=== PATIENT | male | born 1950 | race Caucasian/White ===

== ENCOUNTER 2018-07-25 11:03 | Emergency (ER) | payer SELFPAY ==
--- NOTE | 2018-07-25 12:01 | NUR ---
PT. CAME IN ON AMBULANCE FOR UNRESPONSIVE MALE IN HIS CAR.... PT. ARRIVED STOOD UP FROM AMBULANCE GURNEY AND SAT ON OUR ER GURNEY.... PT. THEN STOOD UP AND STATED HE WAS LEAVEING. PARAMETIC, NURSE JOSE, SENIOR IT AUDITORJEEVAN BUSCH, AND ME THE CHARGE NURSE TRIED TO DELAY HIM LONG ENOUGH TO HAVE AN MD SEE THE PT. PT. WAS NOT ON A HOLD AND WOULD NOT STOP WALKING. WHEN PT. LET HIMSELF OUT OF THE ER DOOR. I HAD THE JEEVAN BUSCH FOLLOW HIM OUT WHEN HE STARTED WALKING FAST HE COULD ACROSS THE PARKING LOT. PARAMETIC CALLED [employer] TO NOTIFY THEM OF HIM WALKING AWAY AND BEING CONFUSSED.
--- NOTE | 2018-07-27 08:49 | NUR ---
MAILED MANSOOR HAILE HIS [place] [employer]IV[place] LICENCE BACK TO [address] [place] [address]
== END 2018-07-25 11:45 | disposition left against medical advice (07) ==
LOC: ER 11:04
DX: R41.0 Disorientation, unspecified (principal); Z53.21 Procedure and treatment not carried out due to patient leaving prior to being seen by health care provider

== ENCOUNTER 2022-02-24 18:27 | Emergency (ER) | payer SELFPAY ==
[~2022-02-24] VITALS: Ht 162.6 cm; Wt 75.0 kg
[2022-02-24 18:35] VITALS: BP 142/58
[2022-02-24 22:28] LABS: BASOPHILS % (AUTO) 0.2 % (0-1); EOSINOPHILS % (AUTO) 0.1 % (0-6); HEMATOCRIT 38.3 % (42.0-52.0); HEMOGLOBIN 12.6 g/dl (14.0-17.9); LYMPHOCYTES # (AUTO) 0.5 X10'3 (1.1-4.8); LYMPHOCYTES % (AUTO) 6.3 % (21-51); MEAN CORPUSCULAR HEMOGLOBIN 27.5 PG (27.0-31.0); MEAN CORPUSCULAR HGB CONC 32.9 g/dL (33.0-36.5); MEAN CORPUSCULAR VOLUME 83.7 FL (78-98); MEAN PLATELET VOLUME 7.6 FL (7.4-10.4); MONOCYTES # (AUTO) 0.6 X10'3 (0-0.9); MONOCYTES % (AUTO) 7.6 % (2-12); NEUTROPHILS # (AUTO) 7.3 X10'3 (1.8-7.7); NEUTROPHILS % (AUTO) 85.8 % (42-75); PLATELET COUNT 218 X10'3 (140-440); RED BLOOD COUNT 4.57 X10'6 (4.70-6.10); RED CELL DISTRIBUTION WIDTH 18.6 % (11.5-14.5); WHITE BLOOD COUNT 8.5 X10'3 (4.5-11.0)
[2022-02-24 22:42] LABS: ANISOCYTOSIS 2+; BURR CELLS 1+; ELLIPTOCYTES FEW; PLATELET ESTIMATE NORMAL
[2022-02-24 22:47] LABS: ALANINE AMINOTRANSFERASE 16 U/L (12-78); ALBUMIN 2.8 G/DL (3.4-5.0); ALBUMIN/GLOBULIN RATIO 0.7 (1.1-1.5); ALKALINE PHOSPHATASE 130 IU/L (46-116); ANION GAP 10 (8-16); ASPARTATE AMINO TRANSFERASE 18 U/L (10-37); BILIRUBIN,TOTAL 0.3 MG/DL (0.1-1.0); BLOOD UREA NITROGEN 35 MG/DL (7-18); BUN/CREATININE RATIO 31.8 (5.4-32.0); CALCIUM 8.1 MG/DL (8.5-10.1); CHLORIDE 104 MMOL/L (99-107); ETHANOL < 0.010 GM/DL (0.0-0.010); GLUCOSE 151 MG/DL (70-104); POTASSIUM 4.1 MMOL/L (3.5-5.1); SODIUM 132 MMOL/L (135-145); TOTAL CARBON DIOXIDE 18.2 MMOL/L (24-32); eGFR 66 ML/MIN
--- NOTE | 2022-02-24 23:36 | NUR ---
pt refused to provide urine
== END 2022-02-24 23:37 | disposition home or self-care (01) ==
LOC: ER 18:27
DX: R19.7 Diarrhea, unspecified (principal); K92.1 Melena; Z88.1 Allergy status to other antibiotic agents
CPT/HCPCS: 36415; 80053; 80320; 85008; 85025; 99283

== ENCOUNTER 2024-10-16 15:57 | Outpatient (CLI) | payer MEDICAID ==
[~2024-10-16 15:57] MED LIST: NO HOME MEDS
--- NOTE | 2024-10-16 21:59 | RADIOLOGY REPORT ---
DI CHEST,TWO VIEWS CLINICAL HISTORY: LOCALIZED EDEMA COMPARISON: DI CHEST,SINGLE VIEW on DOS: 08/18/24 TECHNIQUE: Frontal and lateral view of the chest was obtained FINDINGS: Lines and Tubes: None Lungs: No focal consolidation. Mild pulmonary vascular congestion. Bibasilar subsegmental atelectasi s. Pleura: No effusion. No pneumothorax. Cardiomediastinal contours:Stable mild cardiomegaly. Bones: No acute osseous abnormality. IMPRESSION: 1. Mild pulmonary vascular congestion. Bibasilar subsegmental atelectasis. Stable mild cardiomegaly. No focal consolidations.
--- NOTE | 2024-10-18 06:00 | CARDIOLOGY REPORT ---
APPROVED REPORT EXAM: Limited 2D, Doppler, and color-flow Echocardiogram. Patient Location: OUT-PATIENT Blood Pressure: 134 / 60 mmHg Heart Rate: 103 bpm Rhythm: SINUS TACHYCARDIA Indications LOCALIZED EDEMA KNOWN SEVERE AORTIC STENOSIS 08-19-[address] Justice: NONE Previous echo: [facility] 08-19-24 [facility] EF 50-55%, mLVH, REBEKAH: 0.92, PKV: 414 cm/s, GRAD: 69/41, LVOT: 1.92 2D Dimensions LVOT Diameter 1.97 (1.8-2.4cm) Aortic Valve AoV Peak Asael. 518.0 cm/s AoV VTI 80.4 cm AO Peak GR. 93.5 mmHg AO Mean GR. 61 mmHg LVOT VTI 34.19 cm LVOT Peak Asael. 164.3 cm/s REBEKAH (VMAX) 0.96 cm2 REBEKAH (VTI) 0.96 cm2 LEFT VENTRICLE Small LV size with hyperdynamic LV function with near cavity obliteration due to low volume state (de creased stroke volume). Mid LV gradient of 42mmHG detected at rest. Patient unable to perform maneu vers due to poor cooperation. LVEF is 75%. RIGHT VENTRICLE RV is normal size and function. ATRIA The left atrium size is normal. AORTIC VALVE Probable trileaflet AV appears heavily calcified with significant stenosis demonstrated by reduced ex cursion and increased transvalvular and ascending aorta turbulance. REBEKAH: 0.96 cmsq; Pkv: 518 cm/s; Gr adients: 93/61 mmHG. MITRAL VALVE Moderate MV annular calcification with thickened leaflets without obVious stenosis. Trace regurgitati on. Other Information Study Quality: Technically Difficult PARASTERNAL WINDOW DUE TO RESPIRATORY STATUS AND POOR COOPERATIO N. Conclusion Small LV size with hyperdynamic LV function with near cavity obliteration due to low volume state (de creased stroke volume). Mid LV gradient of 42mmHG detected at rest. Patient unable to perform man euvers due to poor cooperation. LVEF is 75%. RV is normal size and function. The left atrium size is normal. Probable trileaflet AV appears heavily calcified with significant stenosis demonstrated by reduced ex cursion and increased transvalvular and ascending aorta turbulance. REBEKAH: 0.96 cmsq; Pkv: 518 cm/s; G radients: 93/61 mmHG. Moderate MV annular calcification with thickened leaflets without obVious stenosis. Trace regurgitati on.
== END 2024-10-16 23:59 | disposition home or self-care (01) ==
LOC: CARD DIAG 15:57
PROVIDERS: ATTEND Nurse Practitioner Family
DX: I34.81 Nonrheumatic mitral (valve) annulus calcification (principal); J98.11 Atelectasis; R09.89 Other specified symptoms and signs involving the circulatory and respiratory systems; I51.7 Cardiomegaly; R60.0 Localized edema
CPT/HCPCS: 71046; 93308

== ENCOUNTER 2025-01-31 20:05 | Inpatient (IN) | payer MEDICAID ==
[~2025-01-31] VITALS: Ht 162.6 cm; Wt 77.3 kg
[2025-01-31 20:33] VITALS: TEMP 98.5
--- NOTE | 2025-01-31 20:46 | Physician Documentation ---
History of Present Illness ~ Chief Complaint: Wound Stated Complaint: LEG PAIN/SWELLING Time Seen by MD: 20:43 Primary Medical Doctor: NONE HPI Patient presents to the emergency room for evaluation of lower extremity redness swelling and draining. History of CHF. No fevers. Patient has a poor historian and very agitated. Tetanus within 5 years?: Yes Medication Reconciliation Allergies: Coded Allergies: levofloxacin (Unverified Adverse Reaction, Mild, RED RASH ON CHEST AND ABDOMEN RESOLVED AFTER IV BENADRYL, 01/31/25) Scheduled Furosemide (Furosemide), 1 TAB PO DAILY, (Reported) Metformin HCl (Metformin HCl), 1 TAB PO BID, (Reported) Pantoprazole Sodium (Pantoprazole Sodium), 1 TAB PO BID, (Reported) Tamsulosin Hcl* (Flomax*), 0.4 MG PO BID, (Reported) Discontinued Medications Home Med List (No Home Medications), 1 .SEE ORDER DAILY, (Reported) Discontinued Reason: patient no longer taking Past Medical History Patient History: Patient reports no known family medical history. Review of Systems ROS All review of systems negative except as per HPI Physical Exam Vital Signs: Temperature: 98.5, Source: Oral, Heart Rate: 77, Respiratory Rate: 16, BP: 131/68, Pulse Oximetry: 97, Weight: 77.270 General Appearance General: Patient is awake, alert, oriented x4, agitated Head: Normocephalic and atraumatic. Eyes: Conjunctival normal. EOMI. PERRL. ENT: Mucous membranes moist. Neck: Supple, trachea is midline. Chest: Clear to auscultation bilaterally without rales, rhonchi, or wheezes. There is no accessory muscle use or retractions. Cardiac: RRR without murmurs, gallops, or rubs. Extremities: Bilateral cellulitis with significant edema and draining Progress Results/Orders Results/Orders Orders - JERICHO BRANDT MD Page Hospitalist (01/31/25 22:26) Fill Out Med Reconciliation (01/31/25 22:26) Completed Orders - JERICHO BRANDT MD Drug Screen, Urine (01/31/25 20:59) Acetaminophen 1,000mg/100ml Iv (Ofirmev (01/31/25 22:20) Furosemide Inj (Lasix Inj) (01/31/25 22:30) Vital Signs 01/31/25 01/31/25 01/31/25 20:33 21:00 21:24 Temp 98.5 Pulse 77 97 Resp 16 16 17 B/P (MAP) 131/68 133/68 (89) Pulse Ox 97 95 O2 Flow Rate 0 Laboratory Tests Test 01/31/25 21:26 01/31/25 21:28 01/31/25 21:39 Glucometer 207 H White Blood Count 10.0 Red Blood Count 3.61 L Hemoglobin 9.8 L Hematocrit 29.5 L Mean Corpuscular Volume 81.7 Mean Corpuscular Hemoglobin 27.2 Mean Corpuscular Hemoglobin Concent 33.3 Red Cell Distribution Width 15.3 H Platelet Count 365 Mean Platelet Volume 7.7 Neutrophils (%) (Auto) 66.7 Lymphocytes (%) (Auto) 16.8 L Monocytes (%) (Auto) 10.8 Eosinophils (%) (Auto) 4.8 Basophils (%) (Auto) 0.9 Neutrophils # (Auto) 6.6 Lymphocytes # (Auto) 1.7 Monocytes # (Auto) 1.1 H Eosinophils # (Auto) 0.5 Basophils # (Auto) 0.1 CBC Comment Sodium Level 142 Potassium Level 4.7 Chloride Level 108 H Carbon Dioxide Level 26.6 Anion Gap 7 L Blood Urea Nitrogen 25 H Creatinine 0.95 Estimated GFR/1.73 m2 78 BUN/Creatinine Ratio 26.3 H Glucose Level 212 H Hemoglobin A1c 7.3 H Calcium Level 8.2 L Troponin I High Sensitivity 12 Pro-B-Type Natriuretic Peptide 237 H Albumin 2.8 L Procalcitonin < 0.05 Chemistry Comments Urine Opiates Screen Negative Urine Methadone Screen Negative Urine Fentanyl Screen Negative Urine Barbiturates Screen Negative Urine Phencyclidine Screen Negative Urine Amphetamines Screen Negative Urine Benzodiazepines Screen Negative Urine Cocaine Screen Negative Urine Cannabinoids Screen Negative Drug Screen Comment Microbiology Date/Time Source Procedure Growth Status 01/31/25 21:28 Blood Iv Start Blood Culture - Preliminary NEGATIVE (LESS THAN 24 HOURS) Resulted Medical Decision Making Additional information obtaine: old records Findings Patient presented to the emergency room with bilateral lower extremity redness a nd swelling that has per HPI. Differentials include but are not limited to cellulitis, DVT, osteomyelitis, CHF exacerbation therefore emergent labs ordered. Symptoms consistent with cellulitis that has well as fluid overload. Treatment initiated. Differential Dx:Considerations: Include: Abscess, Cellulitis, Dressing change, Healing wound, Other Departure Admitted to Inpatient Unit: yes, to hospitalist Impression: Primary Impression: Cellulitis Condition: Guarded Referrals: NO PRIMARY CARE PROVIDER (PCP) Signature Scribe Signature: No scribe Attestation: The note accurately reflects work and decisions made by me.Jericho Brandt MD 02/01/25 18:25 JERICHO BRANDT MD Jan 31, 2025 20:46
--- NOTE | 2025-01-31 21:14 | ELECTROCARDIOGRAPH REPORT ---
[facility] Test Date: 2025-01-31 Test Time: 21:11:44 Pat Name: MANSOOR HAILE Department: [facility]-ER Patient ID: [facility]-[id number] Room: ED 9 Gender: M Door Opener: : 1950 Requested By: JAVON ELLINGTON Order Number: [id number] Reading MD: Dr. COLUMBA Carrasquillo Measurements Intervals [place] Rate: 96 P: 81 NM: 183 QRS: 45 QRSD: 77 T: 137 QT: 309 QTc: 391 Interpretive Statements Sinus rhythm Nonspecific T abnormalities, lateral leads Electronically Signed On 02-01-2025 16:52:[address] COLUMBA Carrasquillo Please click the below link to view image of tracing.
[2025-01-31 21:24] VITALS: BP 133/68; PULSE 97; RESP 17; O2SAT 95
--- NOTE | 2025-01-31 21:27 | RADIOLOGY REPORT ---
EXAM: DI CHEST,SINGLE VIEW HISTORY: CP TECHNIQUE: 1 view of the chest COMPARISON: DI CHEST,TWO VIEWS on DOS: 10/16/24 FINDINGS/IMPRESSION: LUNGS: No pleural effusion, consolidation, or pneumothorax. Central pulmonary vascular congestion. MEDIASTINUM: Unremarkable. BONES: No acute osseous abnormality. Degenerative change of bilateral glenohumeral joints. OTHER: None.
[2025-01-31 21:54] LABS: MEAN PLATELET VOLUME 7.7 FL (7.4-10.4); RED CELL DISTRIBUTION WIDTH 15.3 % (11.5-14.5)
[2025-01-31 22:07] LABS: URINE AMPHETAMINE SCREEN NEGATIVE (Neg); URINE BARBITUATE SCREEN NEGATIVE (Neg); URINE BENZODIAZEPINES SCREEN NEGATIVE (Neg); URINE CANNABINOID SCREEN NEGATIVE (Neg); URINE COCAINE SCREEN NEGATIVE (Neg); URINE METHADONE SCREEN NEGATIVE (Neg); URINE OPIATE SCREEN NEGATIVE (Neg); URINE PHENCYCLIDINE SCREEN NEGATIVE (Neg)
[2025-01-31 22:11] LABS: CREATININE 0.95 MG/DL (0.60-1.10); PRO BRAIN NATRIURETIC PEPTIDE 237 PG/ML (0-125); TOTAL CARBON DIOXIDE 26.6 MMOL/L (24-32); eCRCL 58 ML/MIN; eGFR 78 ML/MIN
[2025-01-31] MEDS: furosemide 10 MG/1 ML 10ml inj IV ONE (22:47)
[2025-01-31] MEDS: acetaminophen 1,000mg/100ml IV 100 ML IV ONE (22:48)
[2025-01-31] MEDS ORDERED: METF-1203 PO (23:03)
[2025-01-31] MEDS ORDERED: FURO20TA4 PO (23:03)
[2025-01-31] MEDS ORDERED: TAMS-55 PO (23:03)
[2025-01-31] MEDS ORDERED: PANT40TA54 PO (23:03)
[2025-01-31] MEDS ORDERED: HYDROcodone/acetaminophen 5mg/325mg tablet PO PRN (23:05)
[2025-01-31] MEDS ORDERED: magnesium Cl slow-release 64mg tablet PO PRN (23:05)
[2025-01-31] MEDS ORDERED: magnesium sulf-water 4G/100mL 100 ML IV PRN (23:05)
[2025-01-31] MEDS ORDERED: ondansetron/PF 4mg/2ml inj IV PRN (23:05)
[2025-01-31] MEDS ORDERED: mag hydrox/Alum hydrox/simeth 30ml oral suspension PO PRN (23:05)
[2025-01-31] MEDS ORDERED: HYDROcodone/acetaminophen 10/325mg tab PO PRN (23:05)
[2025-01-31] MEDS ORDERED: potassium Cl 20 mEq SR tablet PO PRN ×2 (23:05)
[2025-01-31] MEDS ORDERED: magnesium sulf-water 2g/50mL 50 ML IV PRN (23:05)
[2025-01-31] MEDS ORDERED: potassium Cl 40MEQ/1/2NS 520ml 520 ML IV PRN (23:05)
[2025-01-31] MEDS ORDERED: DEXTROSE 15 GM of carb/4 tabs (each vial/BOTTLE has 4 tablets) PO PRN ×2 (23:30)
[2025-01-31] MEDS ORDERED: dextrose 50%-water 50ml dispensing syringe IV PRN ×2 (23:30)
[2025-01-31] MEDS ORDERED: glucagon, human recombinant 1mg kit SUBCUT PRN (23:30)
[2025-01-31 23:32] LABS: LEUKOCYTE ESTERASE ,URINE NEGATIVE (Neg); NITRITES, URINE NEGATIVE (Neg); OCCULT BLOOD,URINE NEGATIVE (Neg)
[2025-01-31 23:37] LABS: UA COLLECTION TYPE VOIDED
--- NOTE | 2025-01-31 23:44 | HISTORY AND PHYSICAL-Residence ---
History & Physical Providers to CC Resident Creating Document: VAIBHAV KRISHNAMURTHY RES ~ History of Present Illness Primary Medical Doctor: NONE Reason for Admit\Complaint: Bilateral lower extremity cellulitis right > left History of Present Illness Patient is a poor historian and is visibly agitated and restless not fully participating in exam. Behavior is inappropriate he yells and is not cooperative. Patient is 74-year-old male with history of type 2 diabetes on metformin, severe aortic stenosis, diastolic heart failure presented to the ED with chief complaints of worsening bilateral lower extremity pain. He states that he has been having the pain for the last six weeks. He also has wounds on both lower extremity. He has not been seeing wound care or a provider. He is very restless and does not give me a good explanation about how the wounds have started, if they are getting worse or if he had used any antibiotics recently. He denies fevers, chills, nausea, vomiting, diarrhea. He does state that he has issues with constipation. He uses a cane for ambulation. His niece lives with him. He smokes cigarettes. Denies using recreational drugs. Denies allergic history. Allergies: Coded Allergies: levofloxacin (Unverified Adverse Reaction, Mild, RED RASH ON CHEST AND ABDOMEN RESOLVED AFTER IV BENADRYL, 01/31/25) Home Medications Home Medications Active Reported Flomax* (Tamsulosin HCl) 0.4 Mg Cap.sr.24h 0.4 Mg PO BID Furosemide 20 Mg Tablet 1 Tab PO DAILY Pantoprazole Sodium 40 Mg Tablet.dr 1 Tab PO BID Metformin HCl 500 Mg Tablet 1 Tab PO BID Past Medical History Past Medical History Diabetes Aortic stenosis Chronic neuropathic pain Chronic bilateral lower extremity wounds Past Surgical History Surgical History Comment Hip surgery Family History Family History: Patient reports no known family medical history. ROS ROS Reviewed in full. All negative except for pertinent positive HPI. Exam Vitals: Vital Signs Date Time Temp Pulse Resp B/P (MAP) Pulse Ox O2 Delivery O2 Flow Rate FiO2 01/31/25 21:24 97 17 133/68 (89) 95 0 01/31/25 20:33 98.5 General: General: Awake and Alert, restless, agitated, no distress HEENT: Conjunctiva pink, Sclera clear, Mucus Membranes moist. Neck: Supple without masses and tenderness. Resp: Unlabored. Equal breath sounds bilaterally. Heart: Regular rhythm, normal S1 and S2, grade 3/6 systolic ejection murmur in the aortic area radiating to the entire pericardium. Abdomen: Soft and non tender no organomegaly. Normal bowel sounds x4 quadrant normoactive. No guarding or rigidity. Extremities: Bilateral lower extremity stasis, erythema and edema 2+. Bilateral lower extremity chronic nonhealing wounds, foul-smelling. IT PORTFOLIO MANAGER: No gross motor or sensory abnormalities. Skin: Warm and Dry. Diagnostic Data Last Recorded Lab Results: 01/31/25212701/31/252127 Advance Care Planning Advanced Care plannin - 30 Minutes (I spent total of 15-30 minutes reviewing various resuscitative measures with the patient. Patient decided to be full code.) Additional Plan 74-year-old male with history of type 2 diabetes on metformin, severe aortic stenosis, diastolic heart failure presented to the ED with chief complaints of worsening bilateral lower extremity pain. Bilateral lower extremity cellulitis right > left Bilateral lower extremity acute on chronic wounds Bilateral lower extremity have acute on chronic wounds, foul-smelling, 2+ pitting edema present Vitals stable, WBCs procalcitonin within normal limits Started IV antibiotics vancomycin Follow up with wound cultures blood cultures UA U tox lactic acid Wound care consulted, appreciate recommendations Follow up with vascular imaging for possibility of underlying arterial disease that could be contributing to chronic nonhealing wounds. Follow up with CT of lower extremity Normocytic normochromic anemia Does not have any active signs of bleeding, no hematemesis or melena Follow up with iron studies and repeat H&H Acute on chronic CHF with preserved EF 75% per echo 11/06 Severe aortic stenosis REBEKAH 0.96 cm2 peak velocity 518 cm2 Mildly elevated BNP 237, he has bilateral lower extremity edema 2+ likely multifactorial from the cellulitis and CHF He takes Lasix 20 mg daily at home Started Lasix 20 IV b.i.d. Strict Is&Os, sodium restricted diet Fluid restriction 1.2 L of fluid a day Type 2 diabetes, A1c 7.3 On hyper hypoglycemia protocol Awaiting med rec Code Status: Full code DVT prophylaxis: Heparin Analgesia/sedation: Morphine/[place] Line/tube: PIV GI prophylaxis: Protonix Nutrition: Carb control Prognosis: Guarded Disposition: Continue medical management Patient seen, examined and discussed with the attending physician Dr. Edison Krishnamurthy MD. IM Resident PGY-3 Date of Service: Jan 31, 2025 Billing Provider: EDISON ORTIZ MD Addendum Attestation I agree with the residents assessment and plan as below: 74 year old admitted with bilateral LE cellulitis and chf exacerbation Plan: emprici abx blood cultures lasix for diureiss repeat echo The patient left against medical advice CCT 51 min using HIPPA compliant A/V technology VAIBHAV KRISHNAMURTHY, RES Jan 31, 2025 23:44 EDISON ORTZI MD Feb 01, 2025 03:09
[2025-02-01] MEDS ORDERED: vancomycin/NS 1 GM ADD-VANTAGE 250 ML X 1 DOSE IV SCH
[2025-02-01] MEDS: haloperidol lactate 5mg/ml inj IM ONE (00:06)
[2025-02-01] MEDS ORDERED: haloperidol lactate 5mg/ml inj IM PRN (00:15)
--- NOTE | 2025-02-01 02:57 | DISCHARGE SUMMARY-Residence ---
Discharge Summary Providers to CC Resident Creating Document: VAIBHAV KRISHNAMURTHY RES ~ Discharge Summary Admission Diagnosis: BLE CELLULITIS Hospital Course DATE OF ADMISSION: 01/31/2025 DATE OF DISCHARGE: 10/01/2024 HOSPITAL COURSE SAME MENTIONED DISCHARGE SUMMARY. Discharge Diagnosis\Comment: BILATERAL LOWER EXTREMITY CELLULITIS ACUTE ON CHRONIC CHF WITH PRESERVED EF Operations\Procedures: NONE Consultants: NONE Complications: NONE Condition on DC: Stable Discharge Summary: PATIENT LEFT AGAINST MEDICAL ADVICE PLEASE REFER TO H&P FOR HOSPITAL COURSE. *Problems/Diagnosis: (1) Cellulitis Total Time Spent on D/C: > 30 Minutes Date of Service: Feb 01, 2025 Billing Provider: EDISON ORTIZ MD, ELIZABETH, [place] Feb 01, 2025 02:57
[2025-02-01] MEDS ORDERED: INSULIN LISPRO 100 UNIT/ML INSULN.PEN MULTI-DOSE SQ SCH ×2 (07:00→09:00)
[2025-02-01] MEDS ORDERED: pantoprazole 40mg Tablet.DR PO SCH (07:30)
[2025-02-01] MEDS ORDERED: lactobacillus rhamnosus 10,000 MMU CELLS/CAPSULE PO SCH (08:00)
[2025-02-01] MEDS ORDERED: heparin, porcine 5000 units/ml vial SQ SCH (08:00)
[2025-02-01] MEDS ORDERED: K and/or MAG REPLACEMENT MC SCH (08:00)
[2025-02-01] MEDS ORDERED: furosemide 10 MG/1 ML 10ml inj IV SCH (08:00)
[2025-02-01] MEDS ORDERED: vancomycin/NS 1 GM ADD-VANTAGE 250 ML IV SCH (12:00)
== END 2025-02-01 00:25 | disposition left against medical advice (07) | DRG 194 ==
LOC: ER 20:06 → ED HOLD 23:07
PROVIDERS: ADMIT Internal Medicine; ATTEND Internal Medicine
DX: I50.33 Acute on chronic diastolic (congestive) heart failure (principal); L03.115 Cellulitis of right lower limb; E11.9 Type 2 diabetes mellitus without complications; D64.9 Anemia, unspecified; I35.0 Nonrheumatic aortic (valve) stenosis; Z53.21 Procedure and treatment not carried out due to patient leaving prior to being seen by health care provider; L03.116 Cellulitis of left lower limb; Z79.84 Long term (current) use of oral hypoglycemic drugs; Z88.1 Allergy status to other antibiotic agents; Z79.899 Other long term (current) drug therapy
CPT/HCPCS: 36415; 71045; 80048; 80305; 81003; 82948; 83036; 83605; 83880; 84145; 84484; 85025; 87040; 93005; 96374; 96375; 99285; A6258; G0378; J0131; J1630; J1938

== ENCOUNTER 2025-02-01 12:18 | Inpatient (IN) | payer MEDICAID ==
[~2025-02-01] VITALS: Ht 162.6 cm; Wt 90.0 kg
[~2025-02-01 12:18] MED LIST changes: +FURO20TA4 PO; +METF-1203 PO; -NO HOME MEDS; +PANT40TA54 PO; +TAMS-55 PO
--- NOTE | 2025-02-01 12:24 | Physician Documentation ---
History of Present Illness General Stated Complaint: SORES ON LEGS Time Seen by MD: 12:19 Primary Medical Doctor: NONE History of Present Illness Initial Comments This is a 74-year-old gentleman who presents to the emergency department by ambulance for evaluation of bilateral lower extremity wounds, right greater than left. The gentleman states that he did not actually called the ambulance, the staff at the [facility] called the ambulance. The staff admission also made a point to call here and tell us that the gentleman is not welcome to go back to the admission. The patient is a very reluctant historian and answers with a minimal infor mation. He states that the sores on his bilateral lower extremities has been present for the last six weeks. The particular palliating or aggravating factors. Did not attempt to treat it. He does admitted to the fact that he was here yesterday and left against medical advice. Medication Reconciliation Allergies: Coded Allergies: levofloxacin (Unverified Adverse Reaction, Mild, RED RASH ON CHEST AND ABDOMEN RESOLVED AFTER IV BENADRYL, 01/31/25) Scheduled Furosemide (Furosemide), 1 TAB PO DAILY, (Reported) Metformin HCl (Metformin HCl), 1 TAB PO BID, (Reported) Pantoprazole Sodium (Pantoprazole Sodium), 1 TAB PO BID, (Reported) Tamsulosin Hcl* (Flomax*), 0.4 MG PO BID, (Reported) Discontinued Medications Home Med List (No Home Medications), 1 .SEE ORDER DAILY, (Reported) Discontinued Reason: patient no longer taking Review of Systems ROS 10 point review of systems was performed and unless noted above in HPI is negative for acute process/complaint. Physical Exam Physical Exam Physical Exam GENERAL: Awake, alert, oriented, GCS 15, no apparent distress, non-toxic appearing, answers questions, follows commands appropriately. This is a examined in bed eight. HEENT: Atraumatic, normocephalic, pupils equal, extraocular muscles intact, sclerae anicteric, mucus membranes moist, oropharynx is clear, no stridor. NECK: supple, full active range of motion, trachea midline, no thyromegaly, no lymphadenopathy, no JVD. CARDIOVASCULAR: regular rate/rhythm, no murmurs/gallops/rubs, Pulses are 2+ in all extremities and symmetric. Capillary refill less than 2 seconds. PULMONARY: Nonlabored, good air movement ,no respiratory distress, speaking in full sentences, clear to auscultation bilaterally, no wheezing, no ronchi, no rales, no accessory muscle use. GASTROINTESTINAL: Soft, non-tender, non-distended, normal active bowel sounds, no organomegaly, no pulsatile masses, no CVA tenderness. NEUROLOGIC: Lucid with normal mental status. Normal facial symmetry. Moves all extremities symmetrically and with purpose. No truncal ataxia. Speech is fluid without evidence of dysarthria or aphasia, no focal deficits appreciated. MUSCULOSKELETAL: There is full range of motion of all extremities. There is no joint pain or joint swelling or joint erythema. There is no muscle pain or tenderness or swelling. EXTREMITIES: warm, well-perfused, no cyanosis, no clubbing, no edema, no acute deformities. Skin: warm, dry, no rashes or lesions, no jaundice, no petechiae orpurpura. No ecchymosis. PSYCHIATRIC: Normal affect, normal insight, normal concentration. Focused exam: [This is a chronic venous status changes to bilateral lower extremities as well as cellulitic changes and wounds to the right lower extremity. Neurovascularly baseline.] Progress Results/Orders Results/Orders Orders - LILLIANA JIMÉNEZ DO Culture Blood (02/01/25 12:21) Monitor (02/01/25 12:21) Saline Lock (02/01/25 12:21) Completed Orders - LILLIANA JIMÉNEZ DO Cbc/Diff (02/01/25 12:21) CK (02/01/25 12:21) ESR (02/01/25 12:21) C-Reactive Protein (02/01/25 12:21) PBNP (02/01/25 12:21) MG (02/01/25 12:21) Vancomycin/Ns 1 Gm Add-B[place] (Vancomyc (02/01/25 12:25) Ceftriaxone 2gm/D5w 50ml Bag (Rocephin 2 (02/01/25 12:25) Hs Troponin I W Calculations (02/01/25 12:21) CMP (02/01/25 12:21) Lacticsepsis (02/01/25 12:21) Electrocardiogram (02/01/25 12:29) Medications Received in ER Medications (Trade) Dose Ordered Sig/Andrew Route PRN Reason Start Time Stop Time Status Last Admin Dose Admin Vancomycin HCl 250 ml @ 166.236 mls/hr ONCE ONCE IV 02/01/25 12:25 02/01/25 13:55 DC 02/01/25 14:01 166.236 MLS/HR Ceftriaxone Sodium/Dextrose 50 ml @ 100 mls/hr ONCE ONCE IV 02/01/25 12:25 02/01/25 12:54 DC 02/01/25 12:53 100 MLS/HR Vital Signs 02/01/25 02/01/25 12:22 14:04 Temp 97.6 Pulse 101 89 Resp 15 15 B/P (MAP) 132/60 125/48 (73) Pulse Ox 99 98 Laboratory Tests Test 02/01/25 12:59 White Blood Count 11.8 H Red Blood Count 3.96 L Hemoglobin 10.4 L Hematocrit 32.4 L Mean Corpuscular Volume 81.9 Mean Corpuscular Hemoglobin 26.2 L Mean Corpuscular Hemoglobin Concent 32.0 L Red Cell Distribution Width 15.3 H Platelet Count 408 Mean Platelet Volume 7.8 Neutrophils (%) (Auto) 73.7 Lymphocytes (%) (Auto) 13.4 L Monocytes (%) (Auto) 9.7 Eosinophils (%) (Auto) 2.5 Basophils (%) (Auto) 0.7 Neutrophils # (Auto) 8.7 H Lymphocytes # (Auto) 1.6 Monocytes # (Auto) 1.1 H Eosinophils # (Auto) 0.3 Basophils # (Auto) 0.1 CBC Comment Erythrocyte Sedimentation Rate 87 H Sodium Level 138 Potassium Level 4.3 Chloride Level 105 Carbon Dioxide Level 26.4 Anion Gap 7 L Blood Urea Nitrogen 24 H Creatinine 0.94 Estimated GFR/1.73 m2 79 BUN/Creatinine Ratio 25.5 H Glucose Level 167 H Lactic Acid Level 1.3 Calcium Level 8.7 Magnesium Level 2.3 Total Bilirubin 0.4 Aspartate Amino Transf (AST/SGOT) 22 Alanine Aminotransferase (ALT/SGPT) 20 Alkaline Phosphatase 152 H Total Creatine Kinase 331 H Troponin I High Sensitivity 17 Troponin I High Sens Percent Delta 21 Troponin I Hi Sens Absolute Change 3 C-Reactive Protein 8.69 H Pro-B-Type Natriuretic Peptide 362 H Total Protein 8.8 H Albumin 3.4 Globulin 5.4 H Albumin/Globulin Ratio 0.6 L Chemistry Comments Microbiology Date/Time Source Procedure Growth Status 02/01/25 13:03 Blood Arm Right Blood Culture - Preliminary NEGATIVE (LESS THAN 24 HOURS) Resulted EKG/XRAY/CT/US/VASC/MRI EKG : Additional Comment EKG was obtained and interpreted by myself showing sinus rhythm, rate of 92, normal [place] interval, narrow QRS, prolonged QT of 523, normal axis, no STEMI. Medical Decision Making Additional information obtaine: old records Findings Facility Status: ED Holds, RME process The plan was discussed with the patient, who demonstrates clear understanding of the plan and is in agreement with the plan unless otherwise noted in the chart. All questions have been answered, all concerns were addressed unless otherwise documented. I was available throughout their ED stay for frequent reassessment and questions. Differential Diagnoses (considered and possible or likely): [Chronic wounds, cellulitis, osteomyelitis, abscess, less likely necrotizing fasciitis] ??Differential Diagnoses (considered and unlikely, not requiring evaluation currently): [No evidence of trauma] MDM Data Please see HPI for the following: Independent Historians and external Records Review. Historian: [Patient] Independent Historians: ?[EMS, record review] Medication Management: [Reviewed medication list] Social History and determinants: [Reviewed] Please see the body of the note for the following: Any independent interpretations of ECG, imaging studies. All vitals signs/haemodynamics, ordered tests were independently reviewed and interpreted by myself. Nursing triage complaint and vitals reviewed, additional nursing notes were reviewed as available and I agree unless otherwise noted or documented in contradiction in the chart Vital Signs: Independently reviewed Labs: Independently interpreted Imaging: Independently interpreted Old Medical Records: Independently reviewed, see HPI for relevant summary and information Pulse Oximetry: [98%] interpreted as [normal on room air] by me [[employer] Machine: [Regular Rate, Regular rhythm, no ectopy, NSR] reviewed and interpreted by me] Additionally notably showing: [Hemodynamics reviewed. The patient isn't febrile, tachycardic, not hypotensive, no evidence of respiratory distress. CBC shows borderline leukocytosis, mild anemia, 73% neutrophils, ESR is elevated, CRP is elevated, metabolic panel consistent with a dehydration. Troponin is negative. ] Tests considered but not ordered include: [Imaging has been considerably the can be done on an inpatient basis] Social Determinants of Health Impact: Patient was evaluated in [facility], [facility] [place] access to healthcare due to below par ratio of patient to medical providers. [Very poor health literacy] Comorbid Conditions Impacting Present Evaluation and Care/Treatment: [Passively undiagnosed psychiatric illness, homelessness] Management Discussions with other Healthcare Providers: [Hospitalist regarding admission] Treatment and Disposition Medication Management (Given or considered): [Antibiotics]. See EMR for details Consideration for Hospitalization/Escalation/Deescalation of Care: Admission for observation my appears to be necessary given auto lack of follow-up for his cellulitis. ?ED Course:?[The gentleman had several episodes of behavioral issue and requires redirection.] ?Shared decision making:?[] Code status:?FULL Please see the full Electronic Medical Record for full details of nursing documentation, medications list, other records of complete past medical history and conditions, vital signs, laboratory studies, and any radiologic study interpretations by radiologists. Portions of this note were completed using [employer] dictation software and as a result there may exist minor errors in spelling. I have reviewed elements of past family and social history and agree as included in note. Differential Diagnosis See body of may note for differential diagnosis Departure Disposition: 09 ADMITTED INPATIENT Admitted to Inpatient Unit: to hospitalist Impression: Primary Impression: Encounter for medical screening examination Additional Impressions: Wound of lower extremity Lower extremity cellulitis Condition: Stable Discharge Instructions: Wound Care, Adult Referrals: NO PRIMARY CARE PROVIDER (PCP) Education Educated: Patient Educated regarding: diagnosis, treatment, prognosis, need for follow up Signature Scribe Signature: No scribe Attestation: Date: Feb 01, 2025 Time: 12:41 This note accurately reflects clinical decisions, work performed by myself, DO TINO Phan NICHOLAS M DO Feb 01, 2025 12:24
[2025-02-01] MEDS: CefTRIAXone 2gm/D5W 50ml BAG 50 ML IV ONE (12:53)
[2025-02-01 13:19] LABS: MEAN PLATELET VOLUME 7.8 FL (7.4-10.4); RED CELL DISTRIBUTION WIDTH 15.3 % (11.5-14.5)
--- NOTE | 2025-02-01 13:33 | ELECTROCARDIOGRAPH REPORT ---
[facility] Test Date: 2025-02-01 Test Time: 12:29:54 Pat Name: MANSOOR HAILE Department: EMERGENCY ROOM Room: Gender: M Family Court Counsellor: PAWEL : 1950 Requested By: LILLIANA JIMÉNEZ Order Number: [id number] Reading MD: Dr. COLUMBA Carrasquillo Measurements Intervals [place] Rate: 92 P: 29 CA: 177 QRS: 37 QRSD: 73 T: 113 QT: 422 QTc: 523 Interpretive Statements Sinus rhythm Posterior infarct, old Repol abnrm suggests ischemia, lateral leads Prolonged QT interval Baseline wander in lead(s) V1 Electronically Signed On 02-01-2025 16:53:[address] COLUMBA Carrasquillo Please click the below link to view image of tracing.
[2025-02-01 13:38] LABS: CREATININE 0.94 MG/DL (0.60-1.10); PRO BRAIN NATRIURETIC PEPTIDE 362 PG/ML (0-125); TOTAL CARBON DIOXIDE 26.4 MMOL/L (24-32); eCRCL 59 ML/MIN; eGFR 79 ML/MIN
[2025-02-01] MEDS: vancomycin/NS 1 GM ADD-VANTAGE 250 ML IV ONE (14:01)
[2025-02-01] MEDS ORDERED: vancomycin inj 1,000 MG in normal saline 250ml IV soln 250 ML IV ONE (16:20)
[2025-02-01] MEDS ORDERED: bisacodyl 10mg suppository rectal RC PRN (16:25)
[2025-02-01] MEDS ORDERED: glucagon, human recombinant 1mg kit SUBCUT PRN (16:25)
[2025-02-01] MEDS ORDERED: HYDROcodone/acetaminophen 5mg/325mg tablet PO PRN (16:25)
[2025-02-01] MEDS ORDERED: DEXTROSE 15 GM of carb/4 tabs (each vial/BOTTLE has 4 tablets) PO PRN ×2 (16:25)
[2025-02-01] MEDS ORDERED: mag hydrox/Alum hydrox/simeth 30ml oral suspension PO PRN (16:25)
[2025-02-01] MEDS ORDERED: ondansetron/PF 4mg/2ml inj IV PRN (16:25)
[2025-02-01] MEDS ORDERED: potassium Cl 20 mEq SR tablet PO PRN ×2 (16:25)
[2025-02-01] MEDS ORDERED: magnesium sulf-water 4G/100mL 100 ML IV PRN (16:25)
[2025-02-01] MEDS ORDERED: dextrose 50%-water 50ml dispensing syringe IV PRN ×2 (16:25)
[2025-02-01] MEDS ORDERED: potassium Cl 40MEQ/1/2NS 520ml 520 ML IV PRN (16:25)
[2025-02-01] MEDS ORDERED: magnesium sulf-water 2g/50mL 50 ML IV PRN (16:25)
--- NOTE | 2025-02-01 16:42 | HISTORY AND PHYSICAL ---
History & Physical Providers to CC ~ History of Present Illness Reason for Admit\Complaint: Bilateral draining lower extremity wounds History of Present Illness This is a 74-year-old male who was admitted to the hospital on 01/31/2025 the patient has been very rude to the night nursing staff and the patient ended up leaving AMA. The patient was at the [facility] today and he was sent back to the ED due to his lower extremity wounds per ED physician the patient is no longer welcome to stay at the [facility]. The patient informs me that these wounds has been draining for seven weeks he has been seen and hospitalized at [facility] in early August of 2024 for lower extremity wounds and wound culture grew out MSSA I was pansensitive. [place] [address] and a sed rate of 87 as well as an elevated CRP of 8.69. The patient received IV Rocephin in the ED and I have ordered IV vancomycin and p.o. doxycycline. Wound care nurse consult is ordered as well. Allergies: Coded Allergies: levofloxacin (Unverified Adverse Reaction, Mild, RED RASH ON CHEST AND ABDOMEN RESOLVED AFTER IV BENADRYL, 01/31/25) Home Medications Home Medications Active Reported Flomax* (Tamsulosin HCl) 0.4 Mg Cap.sr.24h 0.4 Mg PO BID Furosemide 20 Mg Tablet 1 Tab PO DAILY Pantoprazole Sodium 40 Mg Tablet.dr 1 Tab PO BID Metformin HCl 500 Mg Tablet 1 Tab PO BID Past Medical History Past Medical History Eqh-bfyypzh-oehgmotdd diabetes mellitus Aortic stenosis Chronic bilateral lower extremity wounds Chronic neuropathic pain Past Surgical History Surgical History Comment Left hip surgery Family History Family History: Unknown Past Social History Social History Comment Smokes a pack of cigarettes a day, does not drink alcohol, states he has not use methamphetamines for a few years amphetamines in his system in August of 2024 code status by default ROS ROS Except for positives in the HPI the rest of the 14 point review systems is negative Exam Vitals: Vital Signs Date Time Temp Pulse Resp B/P (MAP) Pulse Ox O2 Delivery O2 Flow Rate FiO2 02/01/25 14:04 89 15 125/48 (73) 98 02/01/25 12:22 97.6 General: Gen. No acute distress alert and oriented 4 Lungs clear to ascultation bilaterally, no wheezes rales or rhonchi appreciated Heart normal sinus rhythm no murmurs rubs or clicks noted Abdomen soft nontender bowel sounds are normoactive Lower extremities +pitting edema bilaterally with erythema of the distal 3rd of the distal lower extremities bilaterally Diagnostic Data Last Recorded Lab Results: 02/01/25 1259 02/01/25 1259 Problems: (1) Lower extremity cellulitis Status: Acute Additional Plan # bilateral lower extremity cellulitis # bilateral lower extremity chronic wounds Wound care consult The patient likely has a venous stasis dermatitis as well IV vancomycin And p.o. doxycycline Wound culture from August of 2024 grew out MSSA. # [id number] diabetes mellitus Hyper and hypoglycemic protocol High dose sliding scale insulin 8 units of Lantus at night # tobacco use disorder Offered the patient a nicotine patch he declined Will discuss smoking cessation tomorrow if the patient is more open to having a conversation # methamphetamine use disorder Tox screen was negative on the Positive tox screen in August The patient is states he has not use methamphetamines in several years substance use navigator consult is ordered # DVT prophylaxis SQ Lovenox Full code status by default- I will discuss with the patient tomorrow if the patient is more open to having a discussion. Date of Service: Feb 01, 2025 Billing Provider: LUCI HALL DO Common Visit Codes: [id number] INP/OBS CARE (HIGH) LUCI HALL DO Feb 01, 2025 16:42
[2025-02-01] MEDS: magnesium sulf-water 2g/50mL 50 ML IV ONE (18:05)
[2025-02-01] MEDS: INSULIN LISPRO 100 UNIT/ML INSULN.PEN MULTI-DOSE SQ SCH (19:04)
[2025-02-01] MEDS: K and/or MAG REPLACEMENT MC SCH (19:21)
[2025-02-01 20:00] VITALS: BP 136/54; PULSE 103; RESP 14; TEMP 98.3; O2SAT 96
[2025-02-01 20:30] VITALS: RESP 14; O2SAT 96
[2025-02-01] MEDS: DOXYCYCLINE 100MG CAPSULE PO SCH (21:00)
[2025-02-01] MEDS: docusate sod 100mg capsule PO SCH (21:00)
[2025-02-01] MEDS: enoxaparin 40mg/0.4ml syringe SQ SCH (21:02)
[2025-02-01] MEDS: insulin glargine (Lantus) pen - multi-dose SQ SCH (21:04)
[2025-02-01 22:00] VITALS: BP 141/58; PULSE 95; RESP 16; TEMP 99.3; O2SAT 98
[2025-02-02] MEDS: HYDROcodone/acetaminophen 10/325mg tab PO PRN (01:18)
[2025-02-02] MEDS: vancomycin/NS 1 GM ADD-VANTAGE 250 ML IV SCH (01:20)
[2025-02-02] MEDS: LidoCAINE 2% Topical Jelly 11mL syringe (UROJET) TOP ONE (02:57)
[2025-02-02 06:00] VITALS: BP 104/38; PULSE 78; RESP 22; TEMP 98.4; O2SAT 96
[2025-02-02 06:02] LABS: CREATININE 1.03 MG/DL (0.60-1.10); TOTAL CARBON DIOXIDE 24.1 MMOL/L (24-32); eCRCL 53 ML/MIN; eGFR 71 ML/MIN
[2025-02-02 06:10] LABS: MEAN PLATELET VOLUME 8.7 FL (7.4-10.4); RED CELL DISTRIBUTION WIDTH 15.0 % (11.5-14.5)
[2025-02-02 08:00] VITALS: RESP 15; O2SAT 96
[2025-02-02 10:00] VITALS: BP 111/48; PULSE 80; RESP 18; TEMP 98; O2SAT 98
[2025-02-02] MEDS ORDERED: levoFLOXACIN 750MG TABLET PO SCH (11:00)
[2025-02-02] MEDS: JUVEN Smoothie Arginine/Glut./Ca2+Bmb (Juven 19.3pkt) 240ml cup PO SCH (17:35)
[2025-02-02 18:00] VITALS: BP 106/48; PULSE 76; RESP 20; TEMP 97.5; O2SAT 92
--- NOTE | 2025-02-02 18:21 | PROGRESS NOTE ---
Daily Progress Note Providers to CC ~ Antibiotic Timeout Antibiotic Ordered?: Yes Subjective The patient was agitated today and was requesting that he have his laundry washed he was hitting his head with the his fist when I informed him that the nurse will dress the shortly the nurse informed the patient we do not have laundry service available at the hospital as the laundry care sent out. Wound Care saw the patient in his assessed the patient does not need any further wound care services. Objective Vital Signs Date Time Temp Pulse Resp B/P (MAP) Pulse Ox O2 Delivery O2 Flow Rate FiO2 02/02/25 16:46 16 02/02/25 10:00 98.0 80 111/48 (69) 98 Room Air 02/01/25 19:19 0 Result Diagram: 02/02/2551902/02/25519 Gen. No acute distress alert and oriented 4 Lungs clear to ascultation bilaterally, no wheezes rales or rhonchi appreciated Heart normal sinus rhythm no murmurs rubs or clicks noted Abdomen soft nontender bowel sounds are normoactive Lower extremities +pitting edema bilaterally with erythema of the distal 3rd of the distal lower extremities bilaterally Problem\Assessment\Plan Problems/Diagnosis: (1) Lower extremity cellulitis bilateral lower extremity cellulitis # bilateral lower extremity chronic wounds Wound care nurse evaluated the patient today and has signed off however is available if that has any further wound care needs The patient likely has a venous stasis dermatitis as well IV vancomycin And p.o. doxycycline Wound culture from August of 2024 grew out MSSA. # [id number] diabetes mellitus Hyper and hypoglycemic protocol High dose sliding scale insulin 8 units of Lantus at night 02/02 blood sugars controlled today with Lantus on board # tobacco use disorder Offered the patient a nicotine patch he declined Will discuss smoking cessation tomorrow if the patient is more open to having a conversation # methamphetamine use disorder Tox screen was negative on the Positive tox screen in August The patient is states he has not use methamphetamines in several years substance use navigator consult is ordered # DVT prophylaxis SQ Lovenox Date of Service: Feb 02, 2025 Billing Provider: LUCI HALL DO Common Visit Codes: [id number] INP/OBS CARE(HIGH) LUCI HALL DO Feb 02, 2025 18:20
[2025-02-02 20:00] VITALS: RESP 20; O2SAT 92
[2025-02-02 22:00] VITALS: BP 126/56; PULSE 98; RESP 24; TEMP 99.2; O2SAT 97
[2025-02-02 23:21] LABS: URINE AMPHETAMINE SCREEN NEGATIVE (Neg); URINE BARBITUATE SCREEN NEGATIVE (Neg); URINE BENZODIAZEPINES SCREEN NEGATIVE (Neg); URINE CANNABINOID SCREEN NEGATIVE (Neg); URINE COCAINE SCREEN NEGATIVE (Neg); URINE METHADONE SCREEN NEGATIVE (Neg); URINE OPIATE SCREEN POSITIVE (Neg); URINE PHENCYCLIDINE SCREEN NEGATIVE (Neg)
[2025-02-03] MEDS: VANCOMYCIN LEVEL IV ONE (01:46)
[2025-02-03 01:51] LABS: MEAN PLATELET VOLUME 7.5 FL (7.4-10.4); RED CELL DISTRIBUTION WIDTH 15.2 % (11.5-14.5)
[2025-02-03 02:17] LABS: CREATININE 1.03 MG/DL (0.60-1.10); TOTAL CARBON DIOXIDE 26.8 MMOL/L (24-32); eCRCL 53 ML/MIN; eGFR 71 ML/MIN
[2025-02-03 07:03] VITALS: BP 127/47; PULSE 78; RESP 20; TEMP 99.2; O2SAT 95
[2025-02-03 08:00] VITALS: RESP 18
[2025-02-03 12:01] VITALS: BP 133/44; PULSE 79; RESP 22; TEMP 97.7; O2SAT 94
[2025-02-03] MEDS ORDERED: vancomycin/NS 1 GM ADD-VANTAGE 250 ML IV SCH (14:00)
[2025-02-03] MEDS: VANCOmycin 1250MG/NS 250ml Bag 250 ML IV SCH (14:50)
[2025-02-03 18:00] VITALS: BP 112/52; PULSE 78; RESP 18; TEMP 97.9; O2SAT 95
--- NOTE | 2025-02-03 18:59 | PROGRESS NOTE ---
Daily Progress Note Providers to CC ~ Antibiotic Timeout Antibiotic Ordered?: Yes Subjective The patient requested a soda today he had no other requests. Awaiting physical therapy evaluation. His hemoglobin has improved. Objective Vital Signs Date Time Temp Pulse Resp B/P (MAP) Pulse Ox O2 Delivery O2 Flow Rate FiO2 02/03/25 13:00 16 02/03/25 12:01 97.7 79 133/44 (73) 94 Nasal Cannula 02/01/25 19:19 0 Result Diagram: 02/03/2514102/03/25 014 Gen. No acute distress alert and oriented 4 Lungs clear to ascultation bilaterally, no wheezes rales or rhonchi appreciated Heart normal sinus rhythm no murmurs rubs or clicks noted Abdomen soft nontender bowel sounds are normoactive Lower extremities +pitting edema bilaterally with erythema of the distal 3rd of the distal lower extremities bilaterally Problem\Assessment\Plan Problems/Diagnosis: (1) Lower extremity cellulitis bilateral lower extremity cellulitis # bilateral lower extremity chronic wounds Wound care nurse evaluated the patient today and has signed off however is available if that has any further wound care needs The patient likely has a venous stasis dermatitis as well IV vancomycin And p.o. doxycycline Wound culture from August of 2024 grew out MSSA. # gty-uyfweyc-mqogdprma diabetes mellitus Hyper and hypoglycemic protocol High dose sliding scale insulin 8 units of Lantus at night 02/02 blood sugars controlled today with Lantus on board 02/03 blood sugars remained controlled # tobacco use disorder Offered the patient a nicotine patch he declined Will discuss smoking cessation tomorrow if the patient is more open to having a conversation # methamphetamine use disorder Tox screen was negative on the Positive tox screen in August The patient is states he has not use methamphetamines in several years substance use navigator consult is ordered # DVT prophylaxis SQ Lovenox Disposition: Awaiting physical therapy evaluation Date of Service: Feb 03, 2025 Billing Provider: LUCI HALL DO Common Visit Codes: [id number] INP/OBS CARE(HIGH) LUCI HALL DO Feb 03, 2025 18:59
[2025-02-03 20:00] VITALS: RESP 18; O2SAT 95
[2025-02-03 22:00] VITALS: BP 127/48; PULSE 86; RESP 22; TEMP 98.3; O2SAT 96
[2025-02-04 05:00] VITALS: BP 120/57; PULSE 75; RESP 20; TEMP 98.1; O2SAT 95
[2025-02-04 05:32] LABS: MEAN PLATELET VOLUME 7.8 FL (7.4-10.4); RED CELL DISTRIBUTION WIDTH 15.2 % (11.5-14.5)
[2025-02-04 05:52] LABS: CREATININE 0.96 MG/DL (0.60-1.10); TOTAL CARBON DIOXIDE 23.6 MMOL/L (24-32); eCRCL 57 ML/MIN; eGFR 77 ML/MIN
[2025-02-04 09:09] VITALS: RESP 20; O2SAT 95
[2025-02-04 10:00] VITALS: BP 128/62; PULSE 78; RESP 18; TEMP 98.2; O2SAT 96
[2025-02-04 18:00] VITALS: BP 125/62; PULSE 79; RESP 16; TEMP 98.2; O2SAT 98
--- NOTE | 2025-02-04 19:01 | PROGRESS NOTE ---
Daily Progress Note Providers to CC ~ Antibiotic Timeout Antibiotic Ordered?: Yes Subjective The patient did not do so well with physical therapy he was holding on to the bed railing physical therapy recommended using a walker for which the patient refused Objective Vital Signs Date Time Temp Pulse Resp B/P (MAP) Pulse Ox O2 Delivery O2 Flow Rate FiO2 02/04/25 16:50 16 02/04/25 10:00 98.2 78 128/62 (84) 96 Room Air 02/04/25 09:09 0.0 Result Diagram: 02/04/2545502/04/25455 Gen. No acute distress alert and oriented 4 Lungs clear to ascultation bilaterally, no wheezes rales or rhonchi appreciated Heart normal sinus rhythm no murmurs rubs or clicks noted Abdomen soft nontender bowel sounds are normoactive Lower extremities +pitting edema bilaterally with erythema of the distal 3rd of the distal lower extremities bilaterally Problem\Assessment\Plan Problems/Diagnosis: (1) Lower extremity cellulitis bilateral lower extremity cellulitis # bilateral lower extremity chronic wounds Wound care nurse evaluated the patient today and has signed off however is available if that has any further wound care needs The patient likely has a venous stasis dermatitis as well IV vancomycin And p.o. doxycycline Wound culture from August of 2024 grew out MSSA. # [id number] diabetes mellitus Hyper and hypoglycemic protocol High dose sliding scale insulin 8 units of Lantus at night 02/02 blood sugars controlled today with Lantus on board 02/03 blood sugars remained controlled # tobacco use disorder Offered the patient a nicotine patch he declined Will discuss smoking cessation tomorrow if the patient is more open to having a conversation # methamphetamine use disorder Tox screen was negative on the Positive tox screen in August The patient is states he has not use methamphetamines in several years substance use navigator consult is ordered # DVT prophylaxis SQ Lovenox Disposition: 02/04/2025- physical therapist recommend the patient use a walker for which the patient refused and that is the patient is not safe to be discharged home at this juncture- physical therapy to work with the patient on a daily basis. Date of Service: Feb 04, 2025 Billing Provider: LUCI HALL DO Common Visit Codes: [id number] INP/OBS CARE(HIGH) LUCI HALL DO Feb 04, 2025 19:01
[2025-02-04 20:00] VITALS: RESP 16; O2SAT 98
[2025-02-04 22:00] VITALS: BP 127/59; PULSE 73; RESP 16; TEMP 98.6; O2SAT 98
[2025-02-05 01:48] LABS: MEAN PLATELET VOLUME 7.6 FL (7.4-10.4); RED CELL DISTRIBUTION WIDTH 15.3 % (11.5-14.5)
[2025-02-05 02:00] LABS: CREATININE 0.94 MG/DL (0.60-1.10); TOTAL CARBON DIOXIDE 23.9 MMOL/L (24-32); eCRCL 59 ML/MIN; eGFR 79 ML/MIN
[2025-02-05] MEDS: VANCOMYCIN LEVEL IV ONE (02:08)
[2025-02-05 06:00] VITALS: BP 120/66; PULSE 79; RESP 18; TEMP 99; O2SAT 97
[2025-02-05] MEDS: vancomycin/NS 1 GM ADD-VANTAGE 250 ML IV SCH (13:22)
[2025-02-05] MEDS ORDERED: ondansetron 4mg rapidly disintigrating tab PO PRN (15:25)
--- NOTE | 2025-02-05 17:14 | RADIOLOGY REPORT ---
CLINICAL HISTORY: short term memory loss/ garbled speach TECHNIQUE: Helical imaging carried out from skull base to vertex without intravenous contrast. This exam was performed according to our departmental dose optimization program. Up-to-date CT equipment and radiation dose reduction techniques are utilized as appropriate. CTDIVol: 59.5 mGy DLP: 1092.81 mGy-cm WID: COMPARISON: None FINDINGS: Generalized cerebral volume loss with concordant prominence of the subarachnoid spaces and ventricles. Mild patchy low attenuation in the cerebral white matter is consistent with a nonspecific white matter disease. There is no midline shift or mass effect. The sweet white matter interfaces are maintained. The basal cisterns are patent. There is no evidence of acute intracranial hemorrhage or extra-axial fluid collection. The mastoid air cells and visualized paranasal sinuses are well-aerated. Prior ocular lens re placement. Multiple dental caries and periapical lucencies in the remaining maxillary teeth. IMPRESSION: 1. No acute intracranial abnormality. 2. Generalized cerebral volume loss and mild chronic microvascular ischemic change. 3. Multiple dental caries and periapical lucencies in the remaining maxillary teeth, partially imaged.
[2025-02-05 18:00] VITALS: BP 133/53; PULSE 79; RESP 16; TEMP 97.8; O2SAT 97
--- NOTE | 2025-02-05 18:22 | PROGRESS NOTE ---
Daily Progress Note Providers to CC ~ Antibiotic Timeout Antibiotic Ordered?: Yes Subjective The patient did better with physical therapy today however only walked 60 ft and was still high fall risk. The patient has little to no short-term memory CT scan of the head was obtained which was unremarkable the patient has a loud holosystolic murmur consistent with aortic stenosis a echocardiogram is ordered Objective Vital Signs Date Time Temp Pulse Resp B/P (MAP) Pulse Ox O2 Delivery O2 Flow Rate FiO2 02/05/25 15:13 Room Air 0.0 02/05/25 06:00 99.0 79 18 120/66 (84) 97 Result Diagram: 02/05/2513602/05/25136 Gen. No acute distress alert and oriented 4 Lungs clear to ascultation bilaterally, no wheezes rales or rhonchi appreciated Heart normal sinus rhythm loud crescendo decrescendo murmur rubs or clicks noted Abdomen soft nontender bowel sounds are normoactive Lower extremities +1 pitting edema bilaterally with erythema of the distal 3rd of the distal lower extremities bilaterally Problem\Assessment\Plan Problems/Diagnosis: (1) Lower extremity cellulitis bilateral lower extremity cellulitis # bilateral lower extremity chronic wounds Wound care nurse evaluated the patient today and has signed off however is available if that has any further wound care needs The patient likely has a venous stasis dermatitis as well IV vancomycin And p.o. doxycycline Wound culture from August of 2024 grew out MSSA. 02/05 . Vancomycin # cow-lfughab-igqdfvqof diabetes mellitus Hyper and hypoglycemic protocol High dose sliding scale insulin 8 units of Lantus at night 02/02 blood sugars controlled today with Lantus on board 02/03 blood sugars remained controlled # tobacco use disorder Offered the patient a nicotine patch he declined Will discuss smoking cessation tomorrow if the patient is more open to having a conversation # methamphetamine use disorder Tox screen was negative on the Positive tox screen in August The patient is states he has not use methamphetamines in several years substance use navigator consult is ordered # poor short-term memory CT scan of the head was negative It is highly unlikely the patient would be compliant with a MRI # loud crescendo decrescendo holosystolic murmur consistent with aortic stenosis Echocardiogram is ordered # DVT prophylaxis SQ Lovenox Disposition: 02/04/2025- physical therapist recommend the patient use a walker for which the patient refused and that is the patient is not safe to be discharged home at this juncture- physical therapy to work with the patient on a daily basis. 02/05/2025- improved with physical therapy however remains a high fall risk not safe for discharge Date of Service: Feb 05, 2025 Billing Provider: LUCI HALL DO Common Visit Codes: [id number] INP/OBS CARE(HIGH) LUCI HALL DO Feb 05, 2025 18:22
[2025-02-05 20:20] VITALS: RESP 18
[2025-02-05 22:00] VITALS: BP 130/69; PULSE 64; RESP 18; TEMP 98.7; O2SAT 96
[2025-02-06 04:54] LABS: MEAN PLATELET VOLUME 7.6 FL (7.4-10.4); RED CELL DISTRIBUTION WIDTH 15.4 % (11.5-14.5)
[2025-02-06 05:11] LABS: CREATININE 0.99 MG/DL (0.60-1.10); TOTAL CARBON DIOXIDE 23.7 MMOL/L (24-32); eCRCL 56 ML/MIN; eGFR 74 ML/MIN
[2025-02-06 06:00] VITALS: BP 99/63; PULSE 73; RESP 18; TEMP 98.6; O2SAT 97
[2025-02-06 10:00] VITALS: BP 127/50; PULSE 78; RESP 18; TEMP 97.7; O2SAT 97
[2025-02-06 10:06] VITALS: BP 127/50; PULSE 78; RESP 18; TEMP 97.7; O2SAT 97
--- NOTE | 2025-02-06 17:08 | CARDIOLOGY REPORT ---
APPROVED REPORT EXAM: Comprehensive 2D, Doppler, and color-flow Echocardiogram. Patient Location: 357 A Blood Pressure: 99/63 mmHg Heart Rate: 78 bpm Rhythm: SINUS Indications CEREBRAL VASCULAR ACCIDENT EVALUATE FOR PFO UNABLE TO PERFORM SALINE STUDY DUE TO D/C IV KNOWN SEVERE AORTIC STENOSIS Plate Printer: none Previous echo: 10/16/24 [facility] (EF 75%, LV grad 42 mmHg at rest, REBEKAH 0.96 cmsq, pkV 518 cm/s, grad 93 / 61 mmHg, AI NR, trace MR, TDS) 2D Dimensions IVSd 1.4 (0.7-1.1cm) LVDd 4.3 cm PWd 1.3 (0.7-1.1cm) IVSs 1.9 (0.8-1.2cm) LVDs 3.0 (2.5-4.0cm) PWs 1.5 (0.8-1.2cm) LVOT Diameter 1.93 (1.8-2.4cm) LVEF(%) 55.9 (>50%) FS (%) 28.9 % SV 45.3 ml CO 3.4 L/min M-Mode Dimensions Left Atrium(MM) 4.32 (2.5-4.0cm) Aortic Root 2.80 (2.2-3.7cm) Aortic Cusp Exc 0.66 (1.5-2.0cm) Aortic Valve AoV Peak Asael. 489.8 cm/s AoV VTI 104.2 cm AO Peak GR. 96.0 mmHg AO Mean GR. 53 mmHg LVOT VTI 32.31 cm LVOT Peak Asael. 134.3 cm/s REBEKAH(VTI)/BSA 0.91 cm2/m2 REBEKAH (VTI) 0.91 cm2 AV DI 0.31 % Mitral Valve MV E Velocity 155.0 cm/s MV Peak Gr. 10 mmHg MV DECEL TIME 348 ms MV A Velocity 156.4 cm/s MV Mean Gr. 5 mmHg MV PHT 84 ms E/A Ratio 1.0 MVA (PHT) 2.62 cm2 MV VMax 160.0 cm/s MV VMean 108.4 cm/s MVA VTI 2.03 cm2 MV VTI 46.4 cm TDI Medial E' P. V 7.60 cm/s E/Medial E' 20.4 Pulmonary Vein S1 Velocity 72.1 cm/s D2 Velocity 29.9 cm/s PVa Velocity 32.0 cm/s PVa Duration 124 msec LEFT VENTRICLE Normal LV size and function. Moderate concentric hypertrophy. LV gradient decreased from prior exam to 5 mmHg at rest. LVEF is 55-60%. RIGHT VENTRICLE RV size and function appear grossly normal. ATRIA Left atrium is mildly dilated. Interatrial septum appears thin without obvious shunt. AORTIC VALVE Trileaflet AV appears heavily calcified with significant stenosis demonstrated by reduced excursion and increased transvalvular and ascending aorta turbulance. REBEKAH: 0.91 cmsq; Pkv: 4.89 m/sec; Gradients: 96 / 53 mmHG. Peak velocity decreased from prior exam due to reduced EF. No insufficiency. MITRAL VALVE Moderate MV annular and leaflet calcification with mild stenosis. MVA: 2.03 cmsq; Pkv: 1.60 m/sec; Gradients: 10 / 5 mmHG. Trace regurgitation. TRICUSPID VALVE TV appears structurally normal with trace regurgitation. PULMONIC VALVE Normal PV without stenosis, physiologic insufficiency. GREAT VESSELS Aortic root is normal in size. PERICARDIUM Normal pericardium. No effusion. Other Information Study Quality: Adequate, but technically difficult due to body habitus, shortness of breath, and lack of patient cooperation. Conclusion Normal LV size and function. Moderate concentric hypertrophy. LV gradient decreased from prior exam to 5 mmHg at rest. LVEF is 55-60%. RV size and function appear grossly normal. Left atrium is mildly dilated. Interatrial septum appears thin without obvious shunt. Trileaflet AV appears heavily calcified with significant stenosis demonstrated by reduced excursion and increased transvalvular and ascending aorta turbulance. REBEKAH: 0.91 cmsq; Pkv: 4.89 m/sec; Gradients: 96 / 53 mmHG. Peak velocity decreased from prior exam due to reduced EF. No insufficiency. Moderate MV annular and leaflet calcification with mild stenosis. MVA: 2.03 cmsq; Pkv: 1.60 m/sec; Gradients: 10 / 5 mmHG. Trace regurgitation. TV appears structurally normal with trace regurgitation. Normal pericardium. No effusion.
[2025-02-06 18:00] VITALS: BP 138/70; PULSE 83; RESP 18; TEMP 98.7; O2SAT 98
--- NOTE | 2025-02-06 19:07 | PROGRESS NOTE ---
Daily Progress Note Providers to CC ~ Antibiotic Timeout Antibiotic Ordered?: Yes Subjective The patient has no acute complaints today he was evaluated by retail merchandising specialist Petra Tamez who I saw after the evaluation and was informed that the patient may have some form of developmental delay however has not no signs of memory loss or dementia and would be able to formulate a plan for his ADLs. Objective Vital Signs Date Time Temp Pulse Resp B/P (MAP) Pulse Ox O2 Delivery O2 Flow Rate FiO2 02/06/25 10:06 97.7 78 18 127/50 (75) 97 Room Air 02/06/25 07:25 0.0 Result Diagram: 02/06/25 0442 02/06/25 0442 Gen. No acute distress alert and oriented 4 Lungs clear to ascultation bilaterally, no wheezes rales or rhonchi appreciated Heart normal sinus rhythm loud crescendo decrescendo murmur rubs or clicks noted Abdomen soft nontender bowel sounds are normoactive Lower extremities +1 pitting edema bilaterally with faint erythema of the distal 3rd of the distal lower extremities bilaterally Problem\Assessment\Plan Problems/Diagnosis: (1) Lower extremity cellulitis bilateral lower extremity cellulitis # bilateral lower extremity chronic wounds Wound care nurse evaluated the patient today and has signed off however is available if that has any further wound care needs The patient likely has a venous stasis dermatitis as well IV vancomycin And p.o. doxycycline Wound culture from August of 2024 grew out MSSA. 02/05 . Discontinued Vancomycin 02/06 continues to improve # oet-utnfwyc-lfinagjji diabetes mellitus Hyper and hypoglycemic protocol High dose sliding scale insulin 8 units of Lantus at night 02/02 blood sugars controlled today with Lantus on board 02/03 blood sugars remained controlled # tobacco use disorder Offered the patient a nicotine patch he declined Will discuss smoking cessation tomorrow if the patient is more open to having a conversation # methamphetamine use disorder Tox screen was negative on the Positive tox screen in August The patient is states he has not use methamphetamines in several years substance use navigator consult is ordered # possible developmental delay belt cleaner Petra Tamez evaluated the patient and assessed that the patient has no signs of memory loss or dementia and would be able to formulate a plan for his ADLs CT scan of the head was negative # loud crescendo decrescendo holosystolic murmur consistent with aortic stenosis Echocardiogram demonstrates severe aortic stenosis No signs of respiratory distress or shortness of breath # DVT prophylaxis SQ Lovenox Disposition: 02/04/2025- physical therapist recommend the patient use a walker for which the patient refused and that is the patient is not safe to be discharged home at this juncture- physical therapy to work with the patient on a daily basis. 02/06/2025- anticipate the patient will be discharged tomorrow pending hotel voucher with administration. The patient will need a front wheel walker Date of Service: Feb 06, 2025 Billing Provider: LUCI HALL DO Common Visit Codes: [id number] INP/OBS CARE(HIGH) LUCI HALL DO Feb 06, 2025 19:07
[2025-02-06 20:30] VITALS: RESP 18
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
[2025-02-06 22:00] VITALS: BP 124/69; PULSE 78; RESP 16; TEMP 98.4; O2SAT 100
[2025-02-07] MEDS ORDERED: VANCOMYCIN LEVEL IV ONE (01:30)
[2025-02-07 06:00] VITALS: BP 130/61; PULSE 76; RESP 22; TEMP 97.9; O2SAT 100
[2025-02-07 10:00] VITALS: BP 132/53; PULSE 83; RESP 20; TEMP 97.4; O2SAT 98
[2025-02-07] MEDS ORDERED: LACT1CAP26 PO (13:14)
[2025-02-07] MEDS ORDERED: LOSA25TA41 PO (13:14)
[2025-02-07] MEDS ORDERED: DOXY-224 PO (13:14)
[2025-02-07] MEDS ORDERED: HYDR-3972 PO (13:14)
[2025-02-07 14:50] VITALS: RESP 16
--- NOTE | 2025-02-07 19:38 | DISCHARGE SUMMARY ---
Discharge Summary Providers to CC ~ Discharge Summary Admission Diagnosis: Lower extremity cellulitis Hospital Course DATE OF ADMISSION: 02/01/2025 DATE OF DISCHARGE: 02/07/2025 Discharge Diagnosis\Comment: Bilateral lower extremity cellulitis with chronic lower extremity wounds, nah-ouwwaoa-kdvtqlkcg diabetes mellitus, tobacco use disorder, possible developmental delay, severe aortic stenosis chronic Operations\Procedures: None Consultants: film projector operator Petra Tamez Complications: None Condition on DC: Stable New Medications: Lactobacillus Rhamnosus (Culturelle) 10 Billion Cell Capsule 1 EACH PO DAILY, #15 CAP Losartan Potassium (Losartan Potassium) 25 Mg Tablet 12.5 MG PO DAILY, #15 TAB 0 Refills Doxycycline Hyclate (Doxycycline Hyclate) 100 Mg Capsule 100 MG PO BID, #14 CAP Hydrocodone Bit/Acetaminophen (Hydrocodon-Acetaminophn 10-325 tablet) 10mg- 325mg Tablet 1 TAB PO Q8H PRN for SEVERE PAIN 7-10, #15 TAB Continued Medications: Furosemide (Furosemide) 20 Mg Tablet 1 TAB PO DAILY Metformin HCl (Metformin HCl) 500 Mg Tablet 1 TAB PO BID Pantoprazole Sodium (Pantoprazole Sodium) 40 Mg Tablet.dr 1 TAB PO BID Tamsulosin Hcl* (Flomax*) 0.4 Mg Cap.sr.24h 0.4 MG PO BID Discharge Summary: I admitted the patient with the following HPI:This is a 74-year-old male who was admitted to the hospital on 01/31/2025 the patient has been very rude to the night nursing staff and the patient ended up leaving A. The patient was at the [facility] today and he was sent back to the ED due to his lower extremity wounds per ED physician the patient is no longer welcome to stay at the [facility]. The patient informs me that these wounds has been draining for seven weeks he has been seen and hospitalized at [facility] in early August of 2024 for lower extremity wounds and wound culture grew out MSSA I was pansensitive. [place] [id number] and a sed rate of 87 as well as an elevated CRP of 8.69. The patient received IV Rocephin in the ED and I have ordered IV vancomycin and p.o. doxycycline. Wound care nurse consult is ordered as well. The patient initially was treated with IV vancomycin and p.o. doxycycline prior wound culture from August grew out MSSA the wounds did improve though there was some erythema still present. The patient has ire-zmsxtkp-flcukiled diabetes mellitus was treated with a a units of Lantus at night in his blood sugars were controlled during hospitalization the patient will go back on metformin The patient was offered a nicotine patch for his tobacco use disorder however he declined nicotine patch The patient has a remote history of methamphetamine use has been positive in August however tox screen on the was negative. Gen. No acute distress alert and oriented 4 Lungs clear to ascultation bilaterally, no wheezes rales or rhonchi appreciated Heart normal sinus rhythm no murmurs rubs or clicks noted Abdomen soft nontender bowel sounds are normoactive Lower extremities +pitting edema bilaterally with erythema of the distal 3rd of the distal lower extremities bilaterally The patient felt ready to be discharged and was medically cleared to be discharged on 02/07/2025 The patient was seen and evaluated on day of discharge. Time spent on discharge 35 minutes The patient is discharged with a prescription for doxycycline 100 mg b.i.d. for seven days as well as Culturelle and started on losartan since the patient is diabetic and needs renal protection. The patient also received a short script for [place] 12/3250 tablet every 8 hours for severe pain a total of 15 tablets were prescribed. *Problems/Diagnosis: (1) Lower extremity cellulitis Status: Acute Total Time Spent on D/C: > 30 Minutes Date of Service: Feb 07, 2025 Billing Provider: LUCI HALL DO Common Visit Codes: [id number]/OBS DISCH DAY >30min LUCI HALL DO Feb 07, 2025 19:38
== END 2025-02-07 14:30 | disposition home or self-care (01) | DRG 383 ==
LOC: ER 12:18 → ED HOLD 16:32 → SUR 3N 19:55
PROVIDERS: ADMIT Family Medicine; ATTEND Family Medicine
DX: L03.115 Cellulitis of right lower limb (principal); S81.801A Unspecified open wound, right lower leg, initial encounter; B95.61 Methicillin susceptible Staphylococcus aureus infection as the cause of diseases classified elsewhere; F15.10 Other stimulant abuse, uncomplicated; E11.9 Type 2 diabetes mellitus without complications; L03.116 Cellulitis of left lower limb; I35.0 Nonrheumatic aortic (valve) stenosis; F17.210 Nicotine dependence, cigarettes, uncomplicated; F43.22 Adjustment disorder with anxiety; Z79.84 Long term (current) use of oral hypoglycemic drugs; Z88.1 Allergy status to other antibiotic agents; Z79.899 Other long term (current) drug therapy; Z79.4 Long term (current) use of insulin; S81.802A Unspecified open wound, left lower leg, initial encounter; X58.XXXA Exposure to other specified factors, initial encounter; Y93.89 Activity, other specified; Y92.89 Other specified places as the place of occurrence of the external cause; Y99.8 Other external cause status
CPT/HCPCS: 36415; 70450; 80048; 80053; 80202; 80305; 82550; 82948; 83605; 83735; 83880; 84484; 85025; 85651; 86140; 87040; 87081; 93005; 93306; 96365; 96367; 96376; 97116; 97161; 97530; 99285; A6590; C1758; G0378; J0696; J1650; J1815; J3373; J3374